=== PATIENT | male | born 1985 | race African-American/Black ===

== ENCOUNTER 2017-07-18 09:52 | Emergency (ER) | payer SELFPAY ==
[~2017-07-18] VITALS: Ht 177.8 cm; Wt 61.2 kg
[2017-07-18] MEDS ORDERED: ONDANSETRON HCL/PF 4 MG/2 ML VIAL ONE (10:05)
--- NOTE | 2017-07-18 10:05 | NUR ---
PATIENT TO ED DT ABDOMINAL PAIN W/ N/V X 3 DAYS. PATIENT IS AFEBRILE. IN NO DISTRESS. VSS
[2017-07-18] MEDS ORDERED: DICYCLOMINE HCL INJ 20 MG/2 ML AMPUL IM ONE ×2 (10:16→10:30)
[2017-07-18] MEDS ORDERED: KETOROLAC TROMETHAMINE 15 MG/ML VIAL ONE (10:17)
[2017-07-18] MEDS ORDERED: ONDANSETRON HCL/PF 4 MG/2 ML VIAL IVP ONE (10:30)
[2017-07-18] MEDS ORDERED: IV NS 0.9% 1,000 ML BAG IV ONE (10:30)
[2017-07-18] MEDS ORDERED: KETOROLAC TROMETHAMINE INJ 30 MG/ML VIAL IV ONE (10:30)
[2017-07-18 10:50] VITALS: BP 124/80
--- NOTE | 2017-07-18 11:08 | NUR ---
Patient discharged to home in stable condition. Written and verbal after care instructions given. Patient verbalizes understanding of instruction.IV removed. Catheter intact and site benign. Pressure and 4x4 applied to site. No bleeding noted.
== END 2017-07-18 10:50 | disposition home or self-care (01) ==
LOC: ER 09:55
DX: R10.9 Unspecified abdominal pain (principal); R11.2 Nausea with vomiting, unspecified; F17.200 Nicotine dependence, unspecified, uncomplicated; F11.10 Opioid abuse, uncomplicated; Z88.0 Allergy status to penicillin
CPT/HCPCS: 96360; 96372; 96374; 96375; 99284; A4606; J0500; J1885; J2405; Z7610